=== PATIENT | female | born 1945 | race Caucasian/White ===

== ENCOUNTER 2017-03-06 08:20 | Day surgery (SDC) | payer MEDICARE, BC ==
[2017-03-06] MEDS ORDERED: KETOROLAC TROMETHAMINE 30 MG/ML SOL ONE (09:00)
[2017-03-06] MEDS ORDERED: PROPOFOL 500 MG/50 ML EMU IV ONE (09:14)
[2017-03-06] MEDS ORDERED: LIDOCAINE HCL 1% MPF SOL ONE (09:14)
[2017-03-06] MEDS ORDERED: ONDANSETRON HCL 4 MG/2 ML SOL ONE (09:56)
[2017-03-06] MEDS ORDERED: PROPOFOL 10 MG/ML EMU IV ONE (10:42)
[2017-03-06 11:35] VITALS: TEMP 97.6
[2017-03-06 11:47] VITALS: PULSE 76; O2SAT 97
[2017-03-06 12:11] VITALS: BP 128/103; RESP 18
== END 2017-03-06 12:09 | disposition home or self-care (01) | DRG 951 ==
LOC: SURG 08:20
PROVIDERS: ATTEND Surgery
DX: Z86.010 Personal history of colon polyps (principal); D12.0 Benign neoplasm of cecum; D12.2 Benign neoplasm of ascending colon; D12.5 Benign neoplasm of sigmoid colon; D12.3 Benign neoplasm of transverse colon; K57.30 Diverticulosis of large intestine without perforation or abscess without bleeding
CPT/HCPCS: J1885; J2405; J2001; J2704

== ENCOUNTER 2018-04-02 12:11 | Emergency (ER) | payer BC, MEDICARE ==
[2018-04-02 12:35] VITALS: RESP 18; TEMP 97.1
[2018-04-02] MEDS ORDERED: SODIUM CHLORIDE 0.9% 1000ML 1,000 ML IV SCH (12:45)
[2018-04-02 13:26] LABS: ALBUMIN 3.9 gm/dl (3.4-5.0); ALKALINE PHOSPHATASE 104 IU/L (46-116); ALT 33 IU/L (14-63); AST 16 IU/L (15-37); BILIRUBIN,TOTAL 0.5 mg/dl (0.2-1.0); BLOOD UREA NITROGEN 19 mg/dl (7-18); CALCIUM 9.1 mg/dl (8.5-10.1); CARBON DIOXIDE 31.7 mEq/L (21-32); CHLORIDE 103 mMol/L (98-107); CREATININE 0.73 mg/dl (0.60-1.00); GLUCOSE 127 mg/dl (74-106); POTASSIUM 3.8 mMol/L (3.5-5.1); SODIUM 142 mMol/L (136-145); THYROID STIMULATING HORMONE 2.154 uIU/ml (0.358-3.740); TOTAL PROTEIN 7.9 gm/dl (6.4-8.2); TROP I < 0.017 ng/ml (0.000-0.056)
[2018-04-02 15:20] VITALS: PULSE 64; O2SAT 93
[2018-04-02 15:33] VITALS: BP 172/108
== END 2018-04-02 15:27 | disposition home or self-care (01) | DRG 312 ==
LOC: ED 12:11
DX: R55 Syncope and collapse (principal); E03.9 Hypothyroidism, unspecified; I10 Essential (primary) hypertension
CPT/HCPCS: 36415; 71046; 80053; 84443; 84484; 96365; 99283; 99284